=== PATIENT | female | born 1995 | race Caucasian/White ===

== ENCOUNTER 2023-01-28 17:24 | Observation (INO) | payer OTHER ==
[2023-01-28] MEDS ORDERED: MAGNESIUM SULFATE 2 GRAM 2 GM/50 ML BAG IV ONE (17:38)
[2023-01-28] MEDS ORDERED: LABETALOL 20 MG/4 ML SYRINGE IVP PRN ×7 (17:38→18:07)
[2023-01-28] MEDS ORDERED: MAGNESIUM SULFATE 4 GRAM 4 GM/50 ML BAG IV ONE (17:38)
--- NOTE | 2023-01-28 17:41 | ED Physician Documentation ---
PD HPI SEIZURE - Stated complaint Stated Complaint: SEIZURES - History obtained from History obtained from: Family - Additional information Additional information: with EDC of 02/23 seen by a nurse funeral car driver in [place]. Brought in by the for seizure activity. Reportedly around 3:00 today started to get light sensitive and had a migraine aura and then developed seizure activity. All of the history is from the significant other as the patient is not responsive. No history of problems with hypertension or preeclampsia with This or prior . PD PAST MEDICAL HISTORY - Allergies Allergies/Adverse Reactions: Allergies Allergy/AdvReac Type Severity Reaction Status Date / Time tree nut Allergy Anaphylaxis Verified 01/28/23 18:26 PD ED PE NORMAL - Vitals Vital signs reviewed: Yes - General General: Other (She is unresponsive with fluttering eyelids, does not respond to painful stimulus.) - HEENT HEENT: PERRL, EOMI - Neck Neck: Supple, no meningeal sign, No bony TTP - Cardiac Cardiac: RRR, No murmur - Respiratory Respiratory: No respiratory distress, Clear bilaterally - Abdomen Abdomen: Non tender - Derm Derm: Normal color, Warm and dry - Neuro Eye Opening: None Motor: None Verbal: None GCS Score: 3 Results - Labs Labs: Laboratory Tests 01/28/23 01/28/23 18:02 18:02 WBC 9.0 RBC 4.14 L Hgb 12.7 Hct 38.0 MCV 91.8 MCH 30.7 MCHC 33.4 RDW 13.0 Plt Count 223 MPV 10.2 Neut # (Auto) 6.1 Lymph # (Auto) 2.3 [place] # (Auto) 0.6 Eos # (Auto) 0.0 Baso # (Auto) 0.0 Absolute Nucleated RBC 0.00 Nucleated RBC % 0.0 Sodium 137 Potassium 3.8 Chloride 106 Carbon Dioxide 22 Anion Gap 9.0 BUN 13 Creatinine 0.6 Estimated GFR (MDRD) 119 Glucose 89 Calcium 9.7 Magnesium 1.6 L Total Bilirubin 0.4 AST 13 ALT 7 L Alkaline Phosphatase 107 Total Protein 6.7 Albumin 3.7 Globulin 3.0 Albumin/Globulin Ratio 1.2 PD Medical Decision Making - ED course ED course: Patient seen immediately after triage and Dr. Green, her OB see [employer]PER[employer] automation consultant was also called immediately. She is modestly hypertensive with potential seizure activity although it is not classic for that. Magnesium bolus ordered as well as labs. Her mental status quickly returned to normal after initial evaluation. - Critical Care Time(min): 36 Time Includes: Direct patient care, Review records, Reassess patient, Document care, Coordinate care, Medical consult, Family consult for tx dec Procedures included in critical care time: Peripheral IV (She was difficult for IV access and I personally placed a long 22-gauge IV Using ultrasound guidance in the right AC after ChloraPrep.) Departure - Departure Disposition: [facility] DC/Xfer Clinical Impression: Eclampsia Condition: Critical Discharge Date/Time: 01/28/23 18:49
[2023-01-28] MEDS ORDERED: TRANEXAMIC ACID IN NACL 1,000 MG/100 ML BAG IV PRN (18:07)
[2023-01-28] MEDS ORDERED: LACTATED RINGERS 1,000 ML IV PRN (18:07)
[2023-01-28] MEDS ORDERED: hydrALAZINE INJ 20 MG/ML VIAL IVP PRN ×4 (18:07)
[2023-01-28] MEDS ORDERED: fentaNYL 100 MCG/2 ML VIAL IVP PRN (18:07)
[2023-01-28] MEDS ORDERED: miSOPROStoL 200 MCG TABLET PR PRN (18:07)
[2023-01-28] MEDS ORDERED: OXYTOCIN 10 UNIT/ML VIAL IM PRN (18:07)
[2023-01-28] MEDS ORDERED: LACTATED RINGERS 1,000 ML IV STA (18:07)
[2023-01-28] MEDS ORDERED: NIFEdipine 10 MG CAPSULE PO PRN ×2 (18:07)
[2023-01-28] MEDS ORDERED: SODIUM CHLORIDE FLUSH 0.9% 10 ML SYRINGE IVP PRN (18:07)
[2023-01-28] MEDS ORDERED: OXYTOCIN/SODIUM CHLORIDE 500 ML IV PRN (18:07)
[2023-01-28] MEDS ORDERED: lidocaine 1% 20 ML MDV ID PRN (18:07)
[2023-01-28] MEDS ORDERED: CARBOPROST TROMETHAMINE 250 MCG/ML AMP IM PRN (18:07)
[2023-01-28] MEDS ORDERED: miSOPROStoL 200 MCG TABLET BC PRN (18:07)
[2023-01-28] MEDS ORDERED: METHYLERGONOVINE 0.2 MG/ML VIAL IM PRN (18:07)
[2023-01-28] MEDS ORDERED: TERBUTALINE 1 MG/ML VIAL SUBQ PRN (18:07)
[2023-01-28 18:11] LABS: BASOPHILS % (AUTO) 0.1 %; EOSINOPHILS % (AUTO) 0.2 %; HGB - HEMOGLOBIN 12.7 g/dL (12.0-16.0); LYMPHOCYTES # (AUTO) 2.3 10^3/uL (1.5-3.5); MEAN CORPUSCULAR HEMOGLOBIN 30.7 pg (27.0-31.0); MEAN CORPUSCULAR HGB CONC 33.4 g/dL (32.0-36.0); MEAN CORPUSCULAR VOLUME 91.8 fL (81.0-99.0); MEAN PLATELET VOLUME 10.2 fL (7.9-10.8); MONOCYTES # (AUTO) 0.6 10^3/uL (0.0-1.0); MONOCYTES % (AUTO) 6.3 %; NEUTROPHILS # (AUTO) 6.1 10^3/uL (1.5-6.6); NEUTROPHILS % (AUTO) 67.8 %; PLT - PLATELET COUNT 223 10^3/uL (130-450); RED BLOOD COUNT 4.14 10^6/uL (4.20-5.40)
--- NOTE | 2023-01-28 18:20 | HISTORY & PHYSICAL EXAMINATION ---
Admit History - Visit Reason Visit Reason: Other (Seizure) - : 2 Parity: 1 - Other Maternal History Other Maternal History: HPI: 28-year-old G2, P1 at 36 weeks 2 days gestation per patient. Records have not been received. She presented after having a seizure, without tonic-clonic movements. She was started on magnesium sulfate in the ER. Her most recent episode started about 2 hours prior to arrival with light sensitivity and migraine then moved to seizure. Her eyes were open and blinking. She does have a history of migraines that sometimes lead to activity like this. She says this started about 10 years ago, but have been getting more frequent during this . Events usually start with photophobia, progress to tunnel vision, then decreased movement, the sensation of other people around her talking like they are underwater. Her eyelids typically flutter half open, then is unable to make her body move. This lasts for 1-3 minutes then resolves and she is normal. 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 Their main goal is to get an MRI to help with further diagnosis. They have already contacted a neurologist, but are not able to get an appointment for several months. They would like imaging to make sure it is safe to have a baby. No history of elevated blood pressures or preeclampsia/gestational hypertension in previous . She has good movement. Denies loss of fluid. No DOMINGUEZ/BV or RUQP. No vaginal bleeding. Denies nausea and vomiting. Denies urinary urgency or dysuria. All other symptoms reviewed and were negative except per HPI. Course Records pending PMH Migraines vs migraines with brainstem auras PSH [place] teeth removal OB History SH Denies tobacco, alcohol, drug Family History Patient estranged from her family and says there are difficult diagnoses in many family members based on "Dr. Munguia and self diagnosis" Allergies Amoxicillin, cephalexin, propofol Medications Aspirin, 81 mg Physical exam: General: Alert, oriented, no acute distress. Wearing sunglasses for light sensitivity. Head: Normal cephalic atraumatic Eyes: PERRLA, extraocular motions intact after glasses removed. Respiratory: Normal rate of respiration. No accessory muscle use, normal respiratory effort. Cardiovascular: Regular rate and rhythm Abdomen: Gravid, nontender, nondistended Extremities: Normal range of motion Neuro: Oriented x3. Normal movements. No postictal state Psych: Appropriate mood and affect. Very unconcerned by the gravity of a seizure. heart tones: 150. movement palpated SVE: FHT: 140 bp, baseline, moderate variability, accelerations present, no decelerations [place]: irritable Laboratory Last Values WBC 9.0 x10^3/uL (4.8-10.8) 01/28/23 18: RBC 4.14 10^6/uL (4.20-5.40) L 01/28/23 18:02 Hgb 12.7 g/dL (12.0-16.0) 01/28/23 18: Hct 38.0 % (37.0-47.0) 01/28/23 18: MCV 91.8 fL (81.0-99.0) 01/28/23 18: MCH 30.7 pg (27.0-31.0) 01/28/23 18: MCHC 33.4 g/dL (32.0-36.0) 01/28/23 18:02 RDW 13.0 % (12.0-15.0) 01/28/23 18:02 Plt Count 223 10^3/uL (130-450) 01/28/23 18:02 MPV 10.2 fL (7.9-10.8) 01/28/23 18:02 Neut # (Auto) 6.1 10^3/uL (1.5-6.6) 01/28/23 18:02 Lymph # (Auto) 2.3 10^3/uL (1.5-3.5) 01/28/23 18:02 [place] # (Auto) 0.6 10^3/uL (0.0-1.0) 01/28/23 18:02 Eos # (Auto) 0.0 10^3/uL (0.0-0.7) 01/28/23 18:02 Baso # (Auto) 0.0 10^3/uL (0.0-0.1) 01/28/23 18:02 Absolute Nucleated RBC 0.00 x10^3/uL 01/28/23 18:02 Nucleated RBC % 0.0 /100WBC 01/28/23 18:02 Sodium 137 mmol/L (135-145) 01/28/23 18:02 Potassium 3.8 mmol/L (3.5-4.5) 01/28/23 18:02 Chloride 106 mmol/L (101-111) 01/28/23 18:02 Carbon Dioxide 22 mmol/L (21-32) 01/28/23 18:02 Anion Gap 9.0 (6-13) 01/28/23 18:02 BUN 13 mg/dL (6-20) 01/28/23 18:02 Creatinine 0.6 mg/dL (0.6-1.3) 01/28/23 18:02 Estimated GFR (MDRD) 119 (>89) 01/28/23 18:02 Glucose 89 mg/dL (74-104) 01/28/23 18:02 Calcium 9.7 mg/dL (8.5-10.3) 01/28/23 18:02 Magnesium 1.6 mg/dL (1.7-2.3) L 01/28/23 18:02 Total Bilirubin 0.4 mg/dL (0.2-1.0) 01/28/23 18:02 AST 13 IU/L (10-42) 01/28/23 18:02 ALT 7 IU/L (10-60) L 01/28/23 18:02 Alkaline Phosphatase 107 IU/L (42-121) 01/28/23 18:02 Total Protein 6.7 g/dL (6.4-8.9) 01/28/23 18:02 Albumin 3.7 g/dL (3.2-5.5) 01/28/23 18:02 Globulin 3.0 g/dL (2.1-4.2) 01/28/23 18:02 Albumin/Globulin Ratio 1.2 (1.0-2.2) 01/28/23 18:02 Plan 28-year-old at 36 weeks 2 days gestation with seizure 1. Seizure in -Admit for observation for 4 g magnesium bolus followed by 2 g an hour and close observation for eclampsia and magnesium toxicity -We did discuss induction of labor as she is 36 weeks with seizures, but she and her partner are declining. They desire is for further imaging, especially an MRI to look for other causes. -Still desires home and declining hospital delivery -I do recommend staying overnight for magnesium therapy and overall assessment. We can consider an MRI in the morning when it is available if stable. -Seizure activity finished prior to intervention. This does seem to be -Discussed transfer to a higher level of care, but I think this is not medically necessary as we can deliver if eclampsia, and of not eclampsia is a long-term neurologic issue and is likely not emergent, but should absolutely have outpatient follow up. -Electrolyte normal and no signs of severe preeclampsia in lab studies. No anemia. No uremia. -Symptoms not tonic-clonic and more like a focal seizure with possible impaired awareness. Could also be atypical absence seizure. 2. 36 weeks gestation -Continuous monitoring -Declines betamethasone after counseling. 3. Migraines -Discussed that while these may be her migraine symptoms, anything noted as a seizure should be taken seriosly, especially in . -Consider MRI as above Meds/Allgy - Allergies Allergies/Adverse Reactions: Allergies Allergy/AdvReac Type Severity Reaction Status Date / Time tree nut Allergy Anaphylaxis Verified 01/28/23 18:26 Plan for Labor - Plan For Labor I expect patient to be DC'd or transferred within 96 hours.: Yes
[2023-01-28 18:27] LABS: ALBUMIN 3.7 g/dL (3.2-5.5); ALBUMIN/GLOBULIN RATIO 1.2 (1.0-2.2); BILIRUBIN,TOTAL 0.4 mg/dL (0.2-1.0); CALCIUM 9.7 mg/dL (8.5-10.3); CREATININE 0.6 mg/dL (0.6-1.3); MAGNESIUM 1.6 mg/dL (1.7-2.3); POTASSIUM 3.8 mmol/L (3.5-4.5); TOTAL PROTEIN 6.7 g/dL (6.4-8.9)
[2023-01-28] MEDS ORDERED: CALCIUM GLUC 1,000MG/50ML-NACL 1,000 MG/50 ML BAG IV ONE (18:46)
[2023-01-28] MEDS ORDERED: SODIUM CHLORIDE FLUSH 0.9% 10 ML SYRINGE IVP SCH (19:00)
[2023-01-28] MEDS ORDERED: LACTATED RINGERS 1,000 ML IV SCH (19:00)
[2023-01-28] MEDS: MAGNESIUM SULFATE IN WATER 20 GM/500 ML IV.SOLN IV SCH (19:12)
[2023-01-28] MEDS: CALCIUM CARBONATE CHEW 500 MG TABLET PO SCH (20:04)
[2023-01-28] MEDS: FAMOTIDINE 20 MG TABLET PO SCH (20:04)
[2023-01-28 20:36] LABS: MUDS CUTOFF CONCENTRATIONS CUTOFF CONC BELOW:
[2023-01-28 20:47] LABS: AMPHETAMINE SCREEN,URINE NEGATIVE (NEGATIVE); BARBITURATE SCREEN,UR NEGATIVE (NEGATIVE); BENZODIAZEPINES SCREEN, URINE NEGATIVE (NEGATIVE); COCAINE SCREEN URINE NEGATIVE (NEGATIVE); METHADONE SCREEN, URINE NEGATIVE (NEGATIVE); METHAMPHETAMINES SCREEN, URINE NEGATIVE (NEGATIVE); OPIATE SCREEN, URINE NEGATIVE (NEGATIVE); OXYCODONE SCREEN, URINE NEGATIVE (NEGATIVE); PROPOXYPHENE SCREEN, URINE NEGATIVE (NEGATIVE); THC CANNABINOID SCREEN, URINE NEGATIVE (NEGATIVE); TRICYCLIC ANTIDEPRESSANT,URINE NEGATIVE (NEGATIVE)
[2023-01-28 20:50] LABS: CREATININE,URINE 74.4 mg/dL; PROTEIN/CREATININE RATIO,URINE 0.1 (<=0.2)
[2023-01-29] MEDS ORDERED: ACETAMINOPHEN 500 MG TABLET PO PRN (00:42)
[2023-01-29] MEDS ORDERED: METOCLOPRAMIDE 10 MG/2 ML VIAL IVP PRN ×2 (02:07→02:10)
[2023-01-29] MEDS: MAGNESIUM SULFATE IN WATER 20 GM/500 ML IV.SOLN IV SCH (05:01)
[2023-01-29 05:22] VITALS: O2SAT 98
--- NOTE | 2023-01-29 09:12 | MRI Report ---
PROCEDURE: BRAIN WO INDICATIONS: Seizure TECHNIQUE: Noncontrast axial T1 spin echo, axial T2 fast spin echo, sagittal and axial FLAIR, coronal T2 fast sp in echo, axial gradient echo, axial diffusion and ADC through the brain. COMPARISON: None. FINDINGS: Image quality: Excellent. CSF Spaces: Basal cisterns are patent. No extra-axial fluid collections. Ventricles are normal in size and shape. Brain: No intracranial masses or hemorrhage. [place]/white matter interface is normal. Brainstem appe ars normal. Diffusion-weighted images demonstrate no acute ischemic insult. No chronic ischemic ins ults. Normal intravascular flow voids are present. Skull and face: Calvarium has normal marrow signal. Orbits appear normal. Sinuses: Sinuses and mastoids are clear. IMPRESSION: Normal brain MRI. No acute intracranial process. Reviewed by: Edwin Mendiola MD on 01/29/2023 9:11 AM PDT Approved by: Edwin Mendiola MD on 01/29/2023 9:11 AM PDT Station ID: [id number]
[2023-01-29] MEDS: FAMOTIDINE 20 MG TABLET PO SCH (09:30)
[2023-01-29] MEDS: CALCIUM CARBONATE CHEW 500 MG TABLET PO SCH (09:30)
--- NOTE | 2023-01-29 11:03 | PROVIDER PROGRESS NOTE ---
Subjective - Prog Note Date Prog Note Date: 01/29/23 Prog Note Time: 10:59 - Subjective Subjective: Patient is a 28-year-old -0-2-1 at 36 weeks and 3 days who presented to the ER last night with seizure-like activity. Per ER doctor she was unresponsive to painful stimuli and had recurrnet eye flutter. Per on-call overnight doctor and patient she was responsive after the seizure-like event, per patient She had difficulty with language for about 10 to 15 minutes afterwards. Patient states she has a long history of migraine headaches and these "seizure-like activity". She has seen primary care who related these to stress and referred her to an ENT. Per patient ENT rule out Mnire's disease. Episodes have become more frequent and worsening during the and are now occurring up to 2 times a day. Patient states that she does not fully lose consciousness but has difficulty hearing during episodes and takes her about 5 to 10 minutes afterward to "feel normal."Patient is currently not working due to episodes. She states she has stopped driving because of concern and has to use a chair in the shower. She receives her care from [facility].Patient states that she was prescribed SSRIs for management but had no improvement. Magnesium sulfate was started in the ER. Blood pressures have been within normal limits. Blood work has been normal. Symptoms have resolved and patient has no symptoms this morning. She denies headache, changes in vision, right upper quadrant pain, or any other concerns. Positive movement. Denies contractions, vaginal bleeding, leakage of fluid. Objective - Vital Signs/Intake & Output Reviewed Vital Signs: Yes Vital Signs: Vital Signs x48h Pulse Resp BP Pulse Ox 01/29/23 07:01 126/74 01/29/23 06:49 92 16 126/74 01/29/23 04:38 98 14 125/82 H 98 Intake & Output: Intake & Output 01/26/23 01/27/23 01/28/23 01/29/23 23:59 23:59 23:59 23:59 Intake Total 1018.75 1285.833 Output Total 655 1425 Balance 363.75 -139.167 - Objective General Appearance: positive: No acute distress Eyes Bilateral: positive: Normal inspection Respiratory: positive: Breath sounds nml Cardiovascular: positive: Regular rate & rhythm Abdomen: positive: Non-tender (gravid uterus) Extremities: positive: No pedal edema Reflexes: Bicep (R): 2+, Bicep (L): 2+, Knee (R): 2+, Knee (L): 2+ - Lab Results Fish Bones: 01/28/23 18:02 01/28/23 18:02 Other Labs: Lab Results x24hrs 01/28/23 01/28/23 01/28/23 Range/Units 21:13 20:15 20:15 WBC (4.8-10.8) x10^3/uL RBC (4.20-5.40) 10^6/uL Hgb (12.0-16.0) g/dL Hct (37.0-47.0) % MCV (81.0-99.0) fL MCH (27.0-31.0) pg MCHC (32.0-36.0) g/dL RDW (12.0-15.0) % Plt Count (130-450) 10^3/uL MPV (7.9-10.8) fL Neut # (Auto) (1.5-6.6) 10^3/uL Lymph # (Auto) (1.5-3.5) 10^3/uL [place] # (Auto) (0.0-1.0) 10^3/uL Eos # (Auto) (0.0-0.7) 10^3/uL Baso # (Auto) (0.0-0.1) 10^3/uL Absolute Nucleated RBC x10^3/uL Nucleated RBC % /100WBC Sodium (135-145) mmol/L Potassium (3.5-4.5) mmol/L Chloride (101-111) mmol/L Carbon Dioxide (21-32) mmol/L Anion Gap (6-13) BUN (6-20) mg/dL Creatinine (0.6-1.3) mg/dL Estimated GFR (MDRD) (>89) Glucose (74-104) mg/dL Calcium (8.5-10.3) mg/dL Magnesium (1.7-2.3) mg/dL Total Bilirubin (0.2-1.0) mg/dL AST (10-42) IU/L ALT (10-60) IU/L Alkaline Phosphatase (42-121) IU/L Total Protein (6.4-8.9) g/dL Albumin (3.2-5.5) g/dL Globulin (2.1-4.2) g/dL Albumin/Globulin Ratio (1.0-2.2) Urine Creatinine 74.4 mg/dL Ur Total Protein Timed 9 mg/dL Protein/Creatinin Ratio 0.1 (<=0.2) Urine Opiates Screen NEGATIVE (NEGATIVE) Ur Oxycodone Screen NEGATIVE (NEGATIVE) Urine Methadone Screen NEGATIVE (NEGATIVE) Ur Propoxyphene Screen NEGATIVE (NEGATIVE) Ur Barbiturates Screen NEGATIVE (NEGATIVE) Ur Tricyclics Screen NEGATIVE (NEGATIVE) Ur Phencyclidine Scrn NEGATIVE (NEGATIVE) Ur Amphetamine Screen NEGATIVE (NEGATIVE) U Methamphetamines Scrn NEGATIVE (NEGATIVE) U Benzodiazepines Scrn NEGATIVE (NEGATIVE) Urine Cocaine Screen NEGATIVE (NEGATIVE) U Cannabinoids Screen NEGATIVE (NEGATIVE) Blood Type Blood Type Recheck O POSITIVE Antibody Screen 01/28/23 01/28/23 01/28/23 Range/Units 18:02 18:02 18:02 WBC 9.0 (4.8-10.8) x10^3/uL RBC 4.14 L (4.20-5.40) 10^6/uL Hgb 12.7 (12.0-16.0) g/dL Hct 38.0 (37.0-47.0) % MCV 91.8 (81.0-99.0) fL MCH 30.7 (27.0-31.0) pg MCHC 33.4 (32.0-36.0) g/dL RDW 13.0 (12.0-15.0) % Plt Count 223 (130-450) 10^3/uL MPV 10.2 (7.9-10.8) fL Neut # (Auto) 6.1 (1.5-6.6) 10^3/uL Lymph # (Auto) 2.3 (1.5-3.5) 10^3/uL [place] # (Auto) 0.6 (0.0-1.0) 10^3/uL Eos # (Auto) 0.0 (0.0-0.7) 10^3/uL Baso # (Auto) 0.0 (0.0-0.1) 10^3/uL Absolute Nucleated RBC 0.00 x10^3/uL Nucleated RBC % 0.0 /100WBC Sodium 137 (135-145) mmol/L Potassium 3.8 (3.5-4.5) mmol/L Chloride 106 (101-111) mmol/L Carbon Dioxide 22 (21-32) mmol/L Anion Gap 9.0 (6-13) BUN 13 (6-20) mg/dL Creatinine 0.6 (0.6-1.3) mg/dL Estimated GFR (MDRD) 119 (>89) Glucose 89 (74-104) mg/dL Calcium 9.7 (8.5-10.3) mg/dL Magnesium 1.6 L (1.7-2.3) mg/dL Total Bilirubin 0.4 (0.2-1.0) mg/dL AST 13 (10-42) IU/L ALT 7 L (10-60) IU/L Alkaline Phosphatase 107 (42-121) IU/L Total Protein 6.7 (6.4-8.9) g/dL Albumin 3.7 (3.2-5.5) g/dL Globulin 3.0 (2.1-4.2) g/dL Albumin/Globulin Ratio 1.2 (1.0-2.2) Urine Creatinine mg/dL Ur Total Protein Timed mg/dL Protein/Creatinin Ratio (<=0.2) Urine Opiates Screen (NEGATIVE) Ur Oxycodone Screen (NEGATIVE) Urine Methadone Screen (NEGATIVE) Ur Propoxyphene Screen (NEGATIVE) Ur Barbiturates Screen (NEGATIVE) Ur Tricyclics Screen (NEGATIVE) Ur Phencyclidine Scrn (NEGATIVE) Ur Amphetamine Screen (NEGATIVE) U Methamphetamines Scrn (NEGATIVE) U Benzodiazepines Scrn (NEGATIVE) Urine Cocaine Screen (NEGATIVE) U Cannabinoids Screen (NEGATIVE) Blood Type O POSITIVE Blood Type Recheck Antibody Screen NEGATIVE - Other Results/Comments Other Results/Comments: Brain MRI: normal Assessment/Plan - Problem List (1) Eclampsia Impression: -Based on history and evaluation likely complex migraines, but will defer to neurology. Brain MRI was normal. Preeclampsia lab work was normal. Blood pressures have been within normal range. -Transfer to [facility]: Appreciate their acceptance of transfer for further neurology work-up. -We will continue magnesium sulfate during transfer. Estimated due date by first trimester ultrasound is 02/23. Reviewing records from [facility] there has been discrepancy in EDC documentation alternating between last menstrual period and first trimester ultrasound.I have reviewed records and the correct due date is 02/23 by this first trimester ultrasound.
--- NOTE | 2023-01-29 11:16 | Ultrasound Report ---
PROCEDURE: OB F/U or Repeat INDICATIONS: IUGR; RECENT SEIZURE; [facility] AT [facility] 10/24/22 OUTSIDE/PRIOR DATING DATA: Last menstrual period (LMP): 05/12/2022. LMP-based estimated date of delivery (ZARA): 02/16/2023. First dating scan (date and location): 10/24/2022. Estimated date of delivery (ZARA) from first dating scan: 02/23/2023. The below data below was generated using the degenerated ZARA of 02/23/2023 TECHNIQUE: Real-time scanning was performed of the fetus, with image documentation and biometric measurements. Endovaginal scanning: Not performed. COMPARISON: Outside study dated 10/24/2022 FINDINGS: General: A single living intrauterine gestation is present. Presentation: Cephalic Placenta: Placental position is anterior, without previa. Amniotic fluid index: 16.0 cm, within normal limits for gestational age. heart rate: 155 beats per minute. Maternal cervical canal: 5.2 cm long; normal length is 2.5 cm or more. biometrics: Biparietal diameter: 9.2 cm, 37 weeks, 1 day. Head circumference: 33.4 cm, 38 weeks, 1 day. Abdominal circumference: 33.3 cm, 37 weeks, 1 day. Femur length: 6.8 cm, 34 weeks, 5 days. Estimated gestational age from initial scan: 36 weeks, 3 days. Composite gestational age from present scan: 36 weeks, 6 days. Estimated weight and percentile: 3004 g, 61%. Measurement variability in biometric dating: +/- 10 days from 12-20 weeks gestation, +/- 2 weeks from 20-30 weeks gestation, +/- 3 weeks at 30 weeks gestation or more. Other: renal pelviectasis is seen with right renal pelvis measures 7.1 mm in diameter and left renal pelvis measures 8.3 mm in diameter. IMPRESSION: 1. Single live intrauterine gestation with fetus in cephalic presentation. heart rate is 155 bp m. Normal amount of amniotic fluid. ANDER equals 16.0 cm. Estimated weight is at 61%. 2. Bilateral renal pelviectasis. Clinical correlation and follow-up ultrasound is recommended. Reviewed by: Reji Barnes MD on 01/29/2023 11:14 AM PDT Approved by: Reji Barnes MD on 01/29/2023 11:14 AM PDT Station ID: [id number]
[2023-01-29 11:32] VITALS: BP 123/83
--- NOTE | 2023-01-29 11:32 | DISCHARGE SUMMARY ---
Discharge Summary Admit Date: 01/28/23 Discharge Date: 01/29/23 Discharging Provider: Claribel HWANG [facility] Condition at Discharge: Critical Discharge Disposition: 02 Transfer Acute Care Hosp Discharge Facility [facility]: [facility] - DIAGNOSES Admission Diagnoses: Seizure Discharge Diagnoses with Status of Each Condition: Seizure - HPI History of Present Illness: Patient is a 28-year-old -0-2-1 who presented at 36 weeks and 2 days with seizure activity. In the emergency department she was unresponsive to painful stimuli and was having repeated eye fluttering. Magnesium sulfate was started at this time. Patient has a history of migraine headache and what she states are "stress seizures". Patient has seen primary care for evaluation and was started on SSRI medication with no improvement in symptoms. She was evaluated by ENT who ruled out Mnire's disease. During the these episodes have been increasing in frequency now occurring up to 2 times per day. Patient states she is semiconscious during episodes but is unable to move her body and unable to respond. She has word finding difficulty afterwards is able to regain her language about 10 minutes after each episode. Patient states she is no longer driving because of concerns, and uses a shower chair because of concerns of falling in the shower. She has also had to stop working. Patient has been receiving her care at [facility] and was planning on home delivery. She has a history of 1 previous normal spontaneous vaginal delivery which was uncomplicated. - HOSPITAL COURSE Hospital Course: Magnesium sulfate was started in the emergency department. Per ER doctor patient was unresponsive to painful stimuli at that time. She regained consciousness shortly afterwards and per patient had difficulty with language for approximately 10 minutes after the episode with return to normal. Patient received 4 g loading dose and 2 g/h maintenance dose.Magnesium started at 6 PM. Vital signs have been stable overnight. Preeclampsia lab work was all within normal limits. Brain MRI was normal. growth ultrasound was done and was also normal with growth at 61%. - ALLERGIES Allergies/Adverse Reactions: Allergies Allergy/AdvReac Type Severity Reaction Status Date / Time tree nut Allergy Anaphylaxis Verified 01/28/23 18:26 - PHYSICAL EXAM AT DISCHARGE General Appearance: positive: No acute distress Eyes Bilateral: positive: Normal inspection Respiratory: positive: Breath sounds nml Cardiovascular: positive: Regular rate & rhythm Abdomen: positive: Non-tender (gravid uterus) Extremities: positive: Non-tender, No pedal edema Neurologic/Psychiatric: positive: Oriented x3 Reflexes: Bicep (R): 2+, Bicep (L): 2+, Knee (R): 2+, Knee (L): 2+ - LABS Result Diagrams: 01/28/23 18:02 01/28/23 18:02 - FOLLOW UP Follow Up: Dr. Velazquez at [facility] kindly accepts transfer for further work-up: Appreciate their acceptance of care. Plan of care discussed with patient and significant other and all questions answered.
== END 2023-01-29 12:55 | disposition short-term general hospital (02) ==
LOC: ED 17:24 → FBP 18:07
PROVIDERS: ADMIT Obstetrics & Gynecology; ATTEND Obstetrics & Gynecology Obstetrics
DX: O26.893 Other specified pregnancy related conditions, third trimester (principal); R56.9 Unspecified convulsions; O16.3 Unspecified maternal hypertension, third trimester; Z3A.36 36 weeks gestation of pregnancy; Z86.69 Personal history of other diseases of the nervous system and sense organs
CPT/HCPCS: 36415; 70551; 76816; 80053; 80306; 82570; 83735; 84156; 85025; 86850; 86900; 86901; 96365; 96366; 96375; 99285; 99291; A9270; G0378; J2765; J7120; J3475